=== PATIENT | male | born 1960 | race Caucasian/White ===

== ENCOUNTER → 2017-01-01 | Outpatient (CLI) | payer BC ==
[~2017-01-01] VITALS: Ht 180.3 cm; Wt 94.0 kg
[~2017-01-01] MED LIST: PROPOFOL 200 MG/20 ML AMP IV PUSH ONE
[2017-01-01 12:30] VITALS: BP 105/67; PULSE 93; RESP 18; TEMP 98.6; O2SAT 96
[2017-01-01 15:12] VITALS: BP 106/63; PULSE 79; RESP 18; O2SAT 93
--- NOTE | 2017-01-02 11:16 | EKG ---
Date Performed: 01/01/2017 Time Performed: 12:22:25 PTAGE: 56 years EKG: Sinus rhythm BORDERLINE LEFT AXIS DEVIATION MINIMAL VOLTAGE CRITERIA FOR LVH, CONSIDER NORMAL VARIANT BORDERLINE ECG NO PREVIOUS TRACING DOCTOR: Steven Crenshaw Interpretating Date/Time 01/02/2017 11:13:14
--- NOTE | 2017-01-03 16:02 | MR ---
cc: VASILE HAQUE DATE: 01/01/2017 PROCEDURE: Colonoscopy with biopsy and polypectomy. INDICATIONS FOR PROCEDURE: Patient with known history of colorectal polyps, increased risk and the patient is being evaluated with repeat colonoscopy at this time for surveillance purposes. Photographs were taken, premedications administered by anesthesiology, monitoring was accomplished with pulse oximetry, and electrocardiogram and blood pressure monitor. PROCEDURE NOTE Informed consent was obtained and the procedure risks and benefits were explained including risks of bleeding, sepsis, perforation, risks of anesthesia. The patient was placed left lateral position video colonoscope was inserted into the rectum, passed in the cecum in the usual fashion. Colonic mucosa was normal throughout. The preparation was very good. In the ascending colon one diminutive polyp was biopsied off and removed. In the transverse colon, one small polyp 5-6 mm was biopsied off and removed. This was removed by biopsy polypectomy technique and another polyp towards the more distal transverse colon was removed by cold snare technique. This measured about 7 mm or so. Hemostasis maintained. In the rectum the scope was retroflexed, grade 1 internal hemorrhoids were noted. No active bleeding was seen. The patient tolerated procedure well. He is sent to recovery room in stable condition. IMPRESSION This examination revealed three small polyps removed as above; one by cold snare polypectomy any other to by biopsy polypectomy technique. Internal hemorrhoids were noted. PLAN Follow up the histopathology recommend repeat colonoscopy for surveillance in 5 years. MD MARIANA Nation/christine /3:16 PM /3:53 PM
== END ==
LOC: HOR 11:52
PROVIDERS: ATTEND Internal Medicine Gastroenterology
DX: D12.2 Benign neoplasm of ascending colon (principal); D12.3 Benign neoplasm of transverse colon; K64.8 Other hemorrhoids; I10 Essential (primary) hypertension; E78.5 Hyperlipidemia, unspecified; E11.9 Type 2 diabetes mellitus without complications; Z01.810 Encounter for preprocedural cardiovascular examination; Z86.010 Personal history of colon polyps; Z79.84 Long term (current) use of oral hypoglycemic drugs; Z79.899 Other long term (current) drug therapy
CPT/HCPCS: 88305; 93005